=== PATIENT | male | born 1970 | race Caucasian/White ===

== ENCOUNTER 2017-08-24 16:49 | Emergency (ER) | payer BC, OTHER ==
[2017-08-24] MEDS: ONDANSETRON (ODT) 4 MG TAB ODT (19:00)
[2017-08-24] MEDS: HYDROCODONE/APAP (10/325) TAB PO (19:01)
== END 2017-08-24 20:11 | disposition home or self-care (01) ==
LOC: FTE 16:49
DX: R51 Headache (principal)
CPT/HCPCS: 70450; 99284-25

== ENCOUNTER 2018-04-11 11:13 | Emergency (ER) | payer BC | END 2018-04-11 11:59 | disposition home or self-care (01) | LOC: FTE 11:13 | DX: L73.9 Follicular disorder, unspecified (principal) | CPT/HCPCS: 99283; Z7502 ==

== ENCOUNTER 2018-10-06 13:41 | Emergency (ER) | payer BC ==
[2018-10-06 15:08] LABS: ADD MAN DIFF? NO
[2018-10-06] MEDS: ASPIRIN 325 MG TAB PO (15:15)
[2018-10-06] MEDS: NITROGLYCERIN (SL) 0.4 MG TAB SL (15:15)
[2018-10-06 15:24] LABS: BASOPHIL # 0.1 10^3/ul (0.0-0.1); BASOPHILS % 0.8 % (0.0-2.0); EOSINOPHILS # 0.1 10^3/ul (0.0-0.5); EOSINOPHILS % 1.5 % (0.0-7.0); HEMOGLOBIN 14.1 g/dl (14.0-18.0); LYMPHOCYTES % 30.6 % (15.0-51.0); MEAN CORPUSCULAR HEMOGLOBIN 29.1 pg (29.0-33.0); MEAN CORPUSCULAR HGB CONC 32.8 g/dl (32.0-37.0); MEAN CORPUSCULAR VOLUME 88.8 fl (82.0-101.0); MEAN PLATELET VOLUME 9.6 fl (7.4-10.4); MONOCYTE # 0.5 10^3/ul (0.3-0.9); MONOCYTES % 8.2 % (0.0-11.0); NEUTROPHIL # 3.8 10^3/ul (1.6-7.5); NEUTROPHILS % 58.1 % (39.0-77.0); PLATELET COUNT 273 10^3/UL (140-415); RED BLOOD COUNT 4.84 10^6/ul (4.70-6.10); RED CELL DISTRIBUTION WIDTH 12.9 % (11.5-14.5)
[2018-10-06 15:24] LABS: WHITE BLOOD COUNT 6.6 10^3/ul (4.8-10.8)
[2018-10-06 15:27] LABS: ALANINE AMINOTRANSFERASE 29 IU/L (13-69); ALBUMIN 4.5 g/dl (3.3-4.9); ALBUMIN/GLOBULIN RATIO 1.28; ALKALINE PHOSPHATASE 56 IU/L (42-121); ANION GAP 8 (5-13); ASPARTATE AMINO TRANSFERASE 26 IU/L (15-46); BILIRUBIN,INDIRECT 0.1 mg/dl (0-1.1); BILIRUBIN,TOTAL 0.1 mg/dl (0.2-1.3); BLOOD UREA NITROGEN 17 mg/dl (7-20); CALCIUM 9.2 mg/dl (8.4-10.2); CARBON DIOXIDE 26 mmol/L (21-31); CHLORIDE 106 mmol/L (97-110); Estimated GFR > 60 mL/min (>60); GLUCOSE 89 mg/dl (70-220); POTASSIUM 4.2 mmol/L (3.5-5.1); SODIUM 140 mmol/L (135-144)
[2018-10-06] MEDS: NITROGLYCERIN 2% 1 GM OINT PKT TD (15:36)
[2018-10-06 15:39] LABS: B-TYPE NATRIURETIC PEPTIDE < 11 PG/ML (0-125); TROPONIN-I < 0.012 ng/ml (0.000-0.120)
== END 2018-10-06 18:36 | disposition left against medical advice (07) ==
LOC: E/R 13:41
DX: R07.9 Chest pain, unspecified (principal)
CPT/HCPCS: 36415; 71045; 80053; 83880; 84484; 85025; 93005; 99285-25